=== PATIENT | male | born 1960 | race Two or more races ===

== ENCOUNTER 2025-01-22 09:03 | Outpatient (CLI) | payer BC ==
[~2025-01-22 09:03] MED LIST: ASPI1TAB20 PO; NOR10T PO; SIMV20TA20 PO; SULF-35 PO
[2025-01-22 09:26] LABS: Basophils # (auto) 0 10 ^3/uL (0-0.2); Basophils % (auto) 0.9 % (0.0-2.0); Eosinophils # (auto) 0.3 10 ^3/uL (0-0.8); Eosinophils % (auto) 5.8 % (0.0-7.0); Hematocrit 43.3 % (41.0-53.0); Hemoglobin 14.9 g/dL (13.5-17.5); Lymphocytes # (auto) 1.8 10 ^3/uL (0.4-5.4); Lymphocytes % (auto) 35.5 % (10.0-50.0); Mean Corpuscular Hemoglobin 31.1 pg (28.0-32.0); Mean Corpuscular Hgb Conc. 34.5 g/dL (32.0-36.0); Mean Corpuscular Volume 90.1 fL (80.0-100.0); Monocytes # (auto) 0.6 10 ^3/uL (0-1.3); Monocytes % (auto) 11.1 % (0.0-12.0); Neutrophils # (auto) 2.4 10 ^3/uL (1.6-8.6); Neutrophils % (auto) 46.7 % (37.0-80.0); Nucleated Red Blood Cells % 0.1 %; Platelet Count (auto) 180 10^3/uL (140-450); Red Cell Distribution Width 13.5 % (11.8-14.3); White Blood Cell 5.2 10^3/uL (4.4-10.8)
[2025-01-22 10:26] LABS: Alanine Aminotransferase 35 U/L (7-40); Albumin 4.1 g/dL (3.2-4.8); Alkaline Phosphatase 68 U/L (46-116); Anion Gap 8 (5-15); Aspartate Aminotransferase 22 U/L (13-40); BUN/Creatinine Ratio 14.3 (10.0-20.0); Bilirubin, Total 0.8 mg/dL (0.2-1.0); Blood Urea Nitrogen 13 mg/dL (9-23); Calcium 9.5 mg/dL (8.7-10.4); Carbon Dioxide 25 mmol/L (20-31); Cholesterol 170 mg/dL (< 200); HDL Cholesterol 42 mg/dL (40-59); Potassium 4.2 mmol/L (3.5-5.1); Sodium 142 mmol/L (136-145); Total Protein 6.5 g/dL (5.7-8.2); Triglycerides 126 mg/dL (< 150)
[2025-01-22 10:35] LABS: Chloride 109 mmol/L (98-107); Glucose 108 mg/dL (74-106); LDL Cholesterol 113 mg/dL (< 100)
[2025-01-22 10:59] LABS: Hepatitis B Core Total AB Negative (Negative)
[2025-01-22 11:13] LABS: Hepatitis A Total Antibody Positive (Negative)
[2025-01-22 11:15] LABS: Hepatitis B Surface Antibody Negative (Negative)
[2025-01-22 11:16] LABS: Hepatitis B Surface Antigen Negative (Negative); Hepatitis C Antibody Negative (Negative)
[2025-01-23 21:06] LABS: Chlamydia Trachomatis, NAA Negative (Negative); Neisseria gonorrhoeae, NAA Negative (Negative)
== END 2025-01-22 17:00 | disposition home or self-care (01) ==
LOC: LAB 09:03
PROVIDERS: ATTEND Nurse Practitioner Family
DX: N40.0 Benign prostatic hyperplasia without lower urinary tract symptoms (principal); I10 Essential (primary) hypertension; E78.5 Hyperlipidemia, unspecified; E55.9 Vitamin D deficiency, unspecified; R93.3 Abnormal findings on diagnostic imaging of other parts of digestive tract; K64.2 Third degree hemorrhoids; N50.811 Right testicular pain; Z11.3 Encounter for screening for infections with a predominantly sexual mode of transmission; Z12.11 Encounter for screening for malignant neoplasm of colon
CPT/HCPCS: 36415; 80053; 80061; 82274; 82306; 83036; 84153; 84443; 85025; 86703; 86704; 86706; 86708; 86780; 86803; 87340

== ENCOUNTER 2025-05-10 09:00 | Outpatient (CLI) | payer BC ==
[2025-05-10 09:21] LABS: Hematocrit 44.4 % (41.0-53.0); Hemoglobin 15.3 g/dL (13.5-17.5); Mean Corpuscular Hemoglobin 31.2 pg (28.0-32.0); Mean Corpuscular Volume 90.5 fL (80.0-100.0); Nucleated Red Blood Cells % 0.1 %
[2025-05-10 09:33] LABS: Urine Protein, UAD Negative (Negative)
[2025-05-10 10:19] LABS: Alanine Aminotransferase 32 U/L (7-40)
[2025-05-10 10:20] LABS: Triglycerides 144 mg/dL (< 150)
[2025-05-10 10:21] LABS: Total Protein 6.8 g/dL (5.7-8.2)
[2025-05-10 10:22] LABS: Albumin 4.2 g/dL (3.2-4.8); Bilirubin, Total 1.0 mg/dL (0.2-1.0); Cholesterol 160 mg/dL (< 200)
[2025-05-10 10:25] LABS: Anion Gap 10 (5-15)
[2025-05-10 10:33] LABS: Alkaline Phosphatase 63 U/L (46-116); Blood Urea Nitrogen 7 mg/dL (9-23); Calcium 9.3 mg/dL (8.7-10.4); Carbon Dioxide 22 mmol/L (20-31); Chloride 106 mmol/L (98-107); Glucose 110 mg/dL (74-106); Potassium 4.6 mmol/L (3.5-5.1); Sodium 138 mmol/L (136-145)
[2025-05-10 10:37] LABS: BUN/Creatinine Ratio 8.0 (10.0-20.0)
[2025-05-10 10:42] LABS: HDL Cholesterol 45 mg/dL (40-59)
== END 2025-05-10 17:00 | disposition home or self-care (01) ==
LOC: LAB 09:00
PROVIDERS: ATTEND Nurse Practitioner Family
DX: I10 Essential (primary) hypertension (principal); E78.5 Hyperlipidemia, unspecified; E55.9 Vitamin D deficiency, unspecified; R73.03 Prediabetes
CPT/HCPCS: 36415; 80053; 80061; 81001; 82306; 83036; 84443; 85025

== ENCOUNTER → 2025-08-15 | Outpatient (CLI) | payer BC ==
[2025-08-15 10:53] LABS: Hematocrit 46.1 % (41.0-53.0); Hemoglobin 15.8 g/dL (13.5-17.5); Mean Corpuscular Hemoglobin 31.3 pg (28.0-32.0); Mean Corpuscular Volume 91.0 fL (80.0-100.0); Nucleated Red Blood Cells % 0.2 %
[2025-08-15 11:16] LABS: Urine Protein, UAD Negative (Negative)
[2025-08-15 11:26] LABS: Alanine Aminotransferase 34 U/L (7-40); Albumin 4.4 g/dL (3.2-4.8); Alkaline Phosphatase 70 U/L (46-116); Anion Gap 5 (5-15); BUN/Creatinine Ratio 10.0 (10.0-20.0); Blood Urea Nitrogen 10 mg/dL (9-23); Calcium 9.6 mg/dL (8.7-10.4); Carbon Dioxide 28 mmol/L (20-31); Cholesterol 184 mg/dL (< 200); HDL Cholesterol 48 mg/dL (40-59); Sodium 141 mmol/L (136-145); Total Protein 6.9 g/dL (5.7-8.2); Triglycerides 105 mg/dL (< 150)
[2025-08-15 11:27] LABS: Bilirubin, Total 1.0 mg/dL (0.2-1.0)
[2025-08-15 11:32] LABS: Chloride 108 mmol/L (98-107); Glucose 119 mg/dL (74-106); Potassium 5.2 mmol/L (3.5-5.1)
== END | disposition home or self-care (01) ==
LOC: LAB 10:15
PROVIDERS: ATTEND Nurse Practitioner Family
DX: E78.5 Hyperlipidemia, unspecified (principal); E55.9 Vitamin D deficiency, unspecified; R73.03 Prediabetes
CPT/HCPCS: 36415; 80053; 80061; 81001; 82306; 83036; 84443; 85025